=== PATIENT | female | born 1950 | race American Indian/Alaskan Native ===

== ENCOUNTER 2022-02-12 13:45 | Inpatient (IN) | payer OTHER, MEDICARE ==
--- NOTE | 2022-02-12 13:58 | Consultation ---
History of Present Illness - Reason for Consult Consult date: 02/12/22 - History of Present Illness [facility] Consult Note # Demographics Consult Type: Acute Stroke Level 1 (0-4.5 hrs) Patient Location: Emergency Room First Name: golden Last Name: anthony Date of : 1950 Age: 71 Gender: Female Facility: [facility] Time of Initial Page (): 02/12/2022, 13:43 Time of Return Call (): 02/12/2022, 13:45 # HPI History: had new onset of confusion. Family noted this to start at 1240PM. She is confused and not able to state the date or where she is. She is having problems getting words out. No focal weakness or facial droop. # Scores Time of exam and NIHSS (): 02/12/2022, 13:54 Level of Consciousness 1a: [0] = Alert; keenly responsive LOC Questions 1b: [2] = Answers neither correctly LOC Commands 1c: [0] = Performs both tasks correctly Best Gaze 2: [0] = Normal Visual 3: [0] = No visual loss Facial Palsy 4: [0] = Normal symmetrical movements Motor Arm Left 5a: [0] = No drift Motor Arm Right 5b: [0] = No drift Motor Leg Left 6a: [0] = No drift Motor Leg Right 6b: [0] = No drift Limb Ataxia 7: [0] = Absent Sensory 8: [0] = Normal Best Language 9: [0] = No aphasia Dysarthria 10: [0] = Normal Extinction and Inattention 11: [0] = No abnormality NIHSS Total: 2 # Exam Vitals: vital signs reviewed SBP: 156 DBP: 96 # PMH-FH-SH Past Medical History: hypertension Graves disease Social History: smoker Medications: No antithrombotics or anticoagulants reported # Data Time Head CT personally read by me (): 02/12/2022, 13:[address]: no bleed # Assessment Impression: Altered Mental Status possible stroke # Plan Thrombolytic/Intervention: NOT IV Thrombolysis or IA Intervention candidate Thrombolytic Exclusion (< 3 hour window): non-disabling deficit Intraarterial Exclusion: clinically not consistent with stroke Target Blood Pressure: SBP < 180 SBP > 120 Labs: Ammonia B12 ESR liver function tests TSH urine drug screen ua Imaging: (urgency: routine): MRI Brain without contrast Other: telemetry monitoring would not pursue stroke work-up if MRI is negative I have discussed my recommendations with the referring provider # Demographics First Name: golden Last Name: anthony Facility: [facility] Medications and Allergies Allergies Allergy/AdvReac Type Severity Reaction Status Date / Time Unable to Assess Allergy Verified 02/12/22 13:48
--- NOTE | 2022-02-12 14:07 | Emergency Department Report ---
ED Neuro Deficit HPI - General Chief Complaint: Neuro Symptoms/Deficit Stated Complaint: STROKE Time Seen by Provider: 02/12/22 13:53 Source: EMS Mode of arrival: Stretcher Limitations: Other - History of Present Illness Initial Comments: 71-year-old -[place] female history of hypertension approximately 2 hours ago had an episode where she became confused and having expressive aphasia there is no report of any trauma. No report of any substance abuse prior to the event. No fever chills or cough. -: Sudden Location: speech Presenting Symptoms: Present: Unable to Speak Clearly History of same: No Place: home Improves With: none Worsens With: none Context: sudden onset Associated Symptoms: confusion, weakness - Related Data Allergies/Adverse Reactions: Allergies Allergy/AdvReac Type Severity Reaction Status Date / Time Unable to Assess Allergy Verified 02/12/22 13:48 ED Review of Systems ROS: Stated complaint: STROKE Other details as noted in HPI Constitutional: denies: chills, fever Eyes: denies: eye pain, eye discharge, vision change ENT: denies: ear pain, throat pain Respiratory: denies: cough, shortness of breath, wheezing Endocrine: no symptoms reported Gastrointestinal: denies: abdominal pain, nausea, diarrhea Skin: as per HPI Neurological: weakness, confusion Psychiatric: denies: anxiety, depression Hematological/Lymphatic: denies: easy bleeding, easy bruising ED Neuro Physical Exam - General Limitations: Altered Mental Status, Other General appearance: alert, in no apparent distress Suspected Stroke: Yes - Head Head exam: Present: atraumatic, normocephalic - Eye Pupils: Present: normal accommodation - ENT ENT exam: Present: normal exam, normal orophraynx, mucous membranes dry - Neck Neck exam: Present: normal inspection - Respiratory Respiratory exam: Present: normal lung sounds bilaterally - Cardiovascular Cardiovascular Exam: Present: regular rate, normal rhythm, normal heart sounds - GI/Abdominal GI/Abdominal exam: Present: soft. Absent: distended, tenderness, guarding - Back Exam Back exam: Present: normal inspection, full ROM - Neurological Exam Neurological exam: Present: alert, oriented X3, CN II-XII intact - NIHSS Assessment Interval: 2 hours post treatment 1a. Level of Consciousness: alert/keenly responsive 1b. LOC Questions: aphasic 1c. LOC Commands: performs no tasks correctly 2. Best Gaze: normal 3. Visual: no visual loss 4. Facial Palsy: normal symmetrical movement 5b. Motor Arm Right: no drift 5a. Motor Arm Left: no drift 6a. Motor Leg Left: no drift 6b. Motor Leg Right: no drift 7. Limb Ataxia: absent 8. Sensory: normal 9. Best Language: severe aphasia 10. Dysarthria: normal 11. Extinction/Inattention: no abnormality Total Score: 6 Stroke Severity: Moderate Stroke - Psychiatric Psychiatric exam: Present: anxious - Skin Skin exam: Present: warm, intact ED Course Vital Signs 02/12/22 14:28 Pulse Rate 68 - Lab Data Result diagrams: 02/12/22 14:09 02/12/22 14:09 Lab Results 02/12/22 02/12/22 02/12/22 Range/Units 14:09 14:09 14:09 WBC 4.3 L (4.5-11.0) K/mm3 RBC 4.07 (3.65-5.03) M/mm3 Hgb 10.4 (10.1-14.3) gm/dl Hct 31.4 (30.3-42.9) % MCV 77 L (79-97) fl MCH 26 L (28-32) pg MCHC 33 (30-34) % RDW 14.2 (13.2-15.2) % Plt Count 228 (140-440) K/mm3 Lymph % (Auto) 30.8 (13.4-35.0) % [place] % (Auto) 7.4 H (0.0-7.3) % Eos % (Auto) 2.5 (0.0-4.3) % Baso % (Auto) 1.3 (0.0-1.8) % Lymph # (Auto) 1.3 (1.2-5.4) K/mm3 [place] # (Auto) 0.3 (0.0-0.8) K/mm3 Eos # (Auto) 0.1 (0.0-0.4) K/mm3 Baso # (Auto) 0.1 (0.0-0.1) K/mm3 Seg Neutrophils % 58.0 (40.0-70.0) % Seg Neutrophils # 2.5 (1.8-7.7) K/mm3 Sodium 139 (137-145) mmol/L Potassium 3.9 (3.6-5.0) mmol/L Chloride 105.7 (98-107) mmol/L Carbon Dioxide 23 (22-30) mmol/L Anion Gap 14 mmol/L BUN 10 (7-17) mg/dL Creatinine 0.8 (0.6-1.2) mg/dL Estimated GFR > 60 ml/min BUN/Creatinine Ratio 13 % Glucose 90 (65-100) mg/dL Calcium 9.3 (8.4-10.2) mg/dL Total Bilirubin 0.40 (0.1-1.2) mg/dL AST 10 (5-40) units/L ALT < 5 L (7-56) units/L Alkaline Phosphatase 80 (35-129) units/L Total Protein 6.3 (6.3-8.2) g/dL Albumin 3.6 L (3.9-5) g/dL Albumin/Globulin Ratio 1.3 % Urine Color (Yellow) Urine Turbidity (Clear) Specific [place] (Man) (1.003-1.030) Ur Protein (Man) (Negative) mg/dL Ur Ketones (Man) (Negative) Ur Nitrite (Man) (Negative) Urine Bilirubin (Man) (Negative) Leukocyte Esterase (Man) (Negative) Urine WBC (Auto) (0.0-6.0) /HPF Urine RBC (Auto) (0.0-6.0) /HPF U Epithel Cells (Auto) (0-13.0) /HPF Urine RBC (Manual) (Negative) Urine Mucus /HPF Urine Opiates Screen Urine Methadone Screen Ur Barbiturates Screen Ur Phencyclidine Scrn Ur Amphetamines Screen U Benzodiazepines Scrn Urine Cocaine Screen U Marijuana (THC) Screen Drugs of Abuse Note Plasma/Serum Alcohol < 0.01 (0-0.07) % 02/12/22 02/12/22 Range/Units Unknown Unknown WBC (4.5-11.0) K/mm3 RBC (3.65-5.03) M/mm3 Hgb (10.1-14.3) gm/dl Hct (30.3-42.9) % MCV (79-97) fl MCH (28-32) pg MCHC (30-34) % RDW (13.2-15.2) % Plt Count (140-440) K/mm3 Lymph % (Auto) (13.4-35.0) % [place] % (Auto) (0.0-7.3) % Eos % (Auto) (0.0-4.3) % Baso % (Auto) (0.0-1.8) % Lymph # (Auto) (1.2-5.4) K/mm3 [place] # (Auto) (0.0-0.8) K/mm3 Eos # (Auto) (0.0-0.4) K/mm3 Baso # (Auto) (0.0-0.1) K/mm3 Seg Neutrophils % (40.0-70.0) % Seg Neutrophils # (1.8-7.7) K/mm3 Sodium (137-145) mmol/L Potassium (3.6-5.0) mmol/L Chloride (98-107) mmol/L Carbon Dioxide (22-30) mmol/L Anion Gap mmol/L BUN (7-17) mg/dL Creatinine (0.6-1.2) mg/dL Estimated GFR ml/min BUN/Creatinine Ratio % Glucose (65-100) mg/dL Calcium (8.4-10.2) mg/dL Total Bilirubin (0.1-1.2) mg/dL AST (5-40) units/L ALT (7-56) units/L Alkaline Phosphatase (35-129) units/L Total Protein (6.3-8.2) g/dL Albumin (3.9-5) g/dL Albumin/Globulin Ratio % Urine Color Yellow (Yellow) Urine Turbidity Clear (Clear) Specific [place]ryker (Man) 1.010 (1.003-1.030) Ur Protein (Man) Negative (Negative) mg/dL Ur Ketones (Man) 2+ (Negative) Ur Nitrite (Man) Negative (Negative) Urine Bilirubin (Man) Negative (Negative) Leukocyte Esterase (Man) Negative (Negative) Urine WBC (Auto) 2.0 (0.0-6.0) /HPF Urine RBC (Auto) 6.0 (0.0-6.0) /HPF U Epithel Cells (Auto) 5.0 (0-13.0) /HPF Urine RBC (Manual) Negative (Negative) Urine Mucus Few /HPF Urine Opiates Screen Presumptive negative Urine Methadone Screen Presumptive negative Ur Barbiturates Screen Presumptive negative Ur Phencyclidine Scrn Presumptive negative Ur Amphetamines Screen Presumptive negative U Benzodiazepines Scrn Presumptive negative Urine Cocaine Screen Presumptive negative U Marijuana (THC) Screen Presumptive negative Drugs of Abuse Note Disclamer Plasma/Serum Alcohol (0-0.07) % Critical care attestation.: If time is entered above; I have spent that time in minutes in the direct care of this critically ill patient, excluding procedure time. ED Disposition Clinical Impression: TIA (transient ischemic attack) Disposition: ADMITTED INPATIENT Is pt being admited?: Yes Condition: Serious
[2022-02-12 14:17] LABS: Basophils # (Auto) 0.1 K/mm3 (0.0-0.1); Basophils % (Auto) 1.3 % (0.0-1.8); Eosinophils # (Auto) 0.1 K/mm3 (0.0-0.4); Eosinophils % (Auto) 2.5 % (0.0-4.3); Hematocrit 31.4 % (30.3-42.9); Hemoglobin 10.4 gm/dl (10.1-14.3); Lymphocytes # (Auto) 1.3 K/mm3 (1.2-5.4); Lymphocytes % (Auto) 30.8 % (13.4-35.0); Mean Corpuscular HGB Conc 33 % (30-34); Mean Corpuscular Volume 77 fl (79-97); Monocytes # (Auto) 0.3 K/mm3 (0.0-0.8); Monocytes % (Auto) 7.4 % (0.0-7.3); Platelet Count 228 K/mm3 (140-440); Red Blood Count 4.07 M/mm3 (3.65-5.03); Red Cell Distribution Width 14.2 % (13.2-15.2)
[2022-02-12 14:34] LABS: Albumin 3.6 g/dL (3.9-5); BUN/Creatinine Ratio 13; Blood Urea Nitrogen 10 mg/dL (7-17); Calcium 9.3 mg/dL (8.4-10.2); Hemolysis Index 7
--- NOTE | 2022-02-12 14:39 | Cat Scan Report ---
CT head/brain wo con INDICATION: everett. TECHNIQUE: CT head. All CT scans at this location are performed using CT dose reduction for ALARA by means of automated exposure control. COMPARISON: None. FINDINGS: Intracranial: Watts-white matter differentiation is maintained. No intracranial hemorrhage. No extra a xial collection. No hydrocephalus. No herniation. Confluent periventricular and centrum semiovale whi te matter hypoattenuation most consistent with sequela of chronic microvascular disease. Smaller area of encephalomalacia seen in the posterior right parietal lobe from remote infarction. Remote lacunar infarctions seen within the left basal ganglia and within the right greater than left cerebellar hem ispheres. Sinuses: Paranasal sinuses and mastoid air cells are essentially clear. Orbits: Globes are intact. Calvarium: No acute fracture. IMPRESSION: 1. No acute findings. 2. Severe sequela of chronic microvessel disease. Multifocal remote infarctions. Signer Name: Yosef Alva MD Signed: 02/12/2022 2:34 PM Workstation Name: [id number]
--- NOTE | 2022-02-12 14:40 | XRay Report ---
CHEST 1 VIEW 02/12/2022 1:32 PM INDICATION / CLINICAL INFORMATION: sob. COMPARISON: None. FINDINGS: SUPPORT DEVICES: None. HEART / MEDIASTINUM: Heart size is normal. Thoracic aorta appears tortuous. LUNGS / PLEURA: Within the medial right lung apex, there is a 3 cm rounded density. Lungs are otherwi se clear. No pneumothorax. ADDITIONAL FINDINGS: No significant additional findings. IMPRESSION: 1. 3 cm rounded density projecting at the medial right lung apex is concerning for neoplasm. CT is re commended to better characterize this. Signer Name: Elvis Virgen MD Signed: 02/12/2022 2:36 PM Workstation Name: [id number]
[2022-02-12 14:51] LABS: Alanine Aminotransferase < 5 units/L (7-56)
[2022-02-12 16:16] LABS: Amphetamine Screen,Urine PRESUMPTIVE NEGATIVE; Benzodiazepines Screen,Urine PRESUMPTIVE NEGATIVE; Cannabinoid Screen,Urine PRESUMPTIVE NEGATIVE; Cocaine Screen,Urine PRESUMPTIVE NEGATIVE; Methadone Screen,Urine PRESUMPTIVE NEGATIVE; Opiate Screen,Urine PRESUMPTIVE NEGATIVE
[2022-02-12 16:17] LABS: Color,Urine Yellow (Yellow)
[2022-02-12 16:27] LABS: Mucus,Urine FEW /HPF
[2022-02-12] MEDS ORDERED: METOCLOPRAMIDE 10 MG TAB PO PRN (18:18)
[2022-02-12] MEDS ORDERED: PROMETHAZINE 25 MG RECT SUPP PR PRN (18:18)
[2022-02-12] MEDS ORDERED: ONDANSETRON 4 MG/2 ML INJ IV PRN (18:18)
[2022-02-12] MEDS ORDERED: ACETAMINOPHEN 325 MG TAB PO PRN (18:18)
[2022-02-12] MEDS ORDERED: oxyCODONE /ACETAMINOPHEN 5-325MG TAB PO PRN (18:18)
[2022-02-12] MEDS ORDERED: HYDROmorphone 0.5 MG/0.5 ML INJ IV PRN (18:18)
[2022-02-12] MEDS ORDERED: ALBUTEROL 2.5 MG/3 ML NEBU IH PRN (18:18)
[2022-02-12] MEDS ORDERED: MAGNESIUM HYDROXIDE (MOM) ORAL LIQD UDC PO PRN (18:18)
--- NOTE | 2022-02-12 18:23 | History and Physical Report ---
History of Present Illness Chief complaint: She got confused and her speech was slurred History of present illness: 71 YO Female with Vascular Dementia, Cerebral Atherosclerosis, HTN presents to ED for evaluation. Patient is confused with diminished cognition and unable to provide detailed history. Patient is brought by EMS staff, ED staff, as well as patient family was made available by telephone for interview. Patient family report that at approximately 1240 hours the patient experienced a sudden onset of confusion and slurred speech without resolution of symptoms. EMS was notified and upon arrival the patient was found to be in distress with a new focal neurologic deficit. A code stroke was called and the patient was transported to [facility] for further care and evaluation of the aforementioned symptoms. The patient was seen and evaluated in the emergency department. All lab and imaging studies reviewed. Patient found to have symptoms consistent with CVA. Patient admitted to medical floor and initiated on CVA protocol. No reports of fever, chills, chest pain, palpitation, trauma, productive cough, skin rash, recent contact, known exposure to COVID-19. No prior admission for review. No medication listed at time of admission for reconciliation. Advanced care planning conducted in ED. Past History Past Medical History: hypertension, other (See HPI) Past Surgical History: No surgical history, Other (Reviewed) Social history: single. denies: smoking, alcohol abuse, prescription drug abuse Family history: hypertension Medications and Allergies Allergies Allergy/AdvReac Type Severity Reaction Status Date / Time Unable to Assess Allergy Verified 02/12/22 13:48 Review of Systems ROS unobtainable: due to mental status Exam - Constitutional Vitals: Temp Pulse Resp BP Pulse Ox 68 02/12/22 14:28 General appearance: Present: mild distress - EENT Eyes: Present: PERRL ENT: hearing intact, clear oral mucosa - Neck Neck: Present: supple, normal ROM - Respiratory Respiratory effort: normal Respiratory: bilateral: CTA - Cardiovascular Heart Sounds: Present: S1 & S2. Absent: rub, click - Extremities Extremities: pulses symmetrical, No edema Peripheral Pulses: within normal limits - Abdominal General gastrointestinal: Present: soft, non-tender, non-distended, normal bowel sounds Female genitourinary: Present: normal - Integumentary Integumentary: Present: clear, warm, dry - Musculoskeletal Musculoskeletal: generalized weakness - Psychiatric Psychiatric: no appropriate mood/affect, no intact judgment & insight, no memory intact - Neurologic Neurologic: CNII-XII intact, moves all extremities, no gait normal Results - Labs CBC & Chem 7: 02/12/22 14:09 02/12/22 14:09 Labs: Abnormal lab results 02/12/22 02/12/22 Range/Units 14:09 14:09 WBC 4.3 L (4.5-11.0) K/mm3 MCV 77 L (79-97) fl MCH 26 L (28-32) pg [place] % (Auto) 7.4 H (0.0-7.3) % ALT < 5 L (7-56) units/L Albumin 3.6 L (3.9-5) g/dL Assessment and Plan - Patient Problems (1) CVA (cerebral vascular accident) Current Visit: Yes Status: Acute Qualifiers: Laterality of affected vessel: unspecified Plan to address problem: CVA protocol: CT head, neuro check, seizure cautions, physical therapy consulted, Occupational Therapy consulted, speech therapy consulted, teleneurology consulted, carotid Doppler, echocardiogram, lipid panel, antiplatelet therapy, statin therapy, (2) Vascular dementia Current Visit: Yes Status: Acute Qualifiers: Dementia behavioral disturbance: without behavioral disturbance Qualified Code(s): F01.50 - Vascular dementia without behavioral disturbance Plan to address problem: Verbal prompting, verbal redirection, benzodiazepine therapy as clinically indicated. (3) Cerebral atherosclerosis Current Visit: Yes Status: Acute Plan to address problem: Risk factor reduction, antiplatelet therapy as clinically indicated. (4) Hypertension Current Visit: Yes Status: Acute Qualifiers: Hypertension type: primary hypertension Qualified Code(s): I10 - Essential (primary) hypertension Plan to address problem: Monitor blood pressure every shift, continue medical management. (5) DVT prophylaxis Current Visit: Yes Status: Acute Plan to address problem: SCDs to bilateral lower extremities while in bed (6) Advance care planning Current Visit: Yes Status: Acute Plan to address problem: Disease education done, care plan discussed, diagnosis discussed, prognosis discussed, patient is full code. +30 minutes. (7) Preventative health care Current Visit: Yes Status: Acute Plan to address problem: Patient family counseled regarding home safety precautions, outpatient follow-up with primary care physician for all age and risk factor appropriate screening test. +30 minutes.
[2022-02-13] MEDS ORDERED: ASPIRIN 325 MG TAB PO SCH (10:00)
--- NOTE | 2022-02-13 11:47 | Electrocardiograph Report ---
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
--- NOTE | 2022-02-13 11:47 | Electrocardiograph Report ---
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
--- NOTE | 2022-02-13 13:29 | Vascular Lab Report ---
DUPLEX DOPPLER ULTRASOUND CAROTID, BILATERAL INDICATION / CLINICAL INFORMATION: stroke. COMPARISON: None available. FINDINGS: RIGHT CAROTID: Mild atherosclerotic plaque. Tortuous ICA. - PLAQUE ESTIMATE (%): < 50% - CCA velocity: 48 cm/sec. - ICA peak systolic velocity: 62 cm/sec. - ICA/CCA PSV Ratio: Less than 2. Right Vertebral Artery: Antegrade flow. LEFT CAROTID: Mild atherosclerotic plaque. Tortuous ICA. - PLAQUE ESTIMATE (%): < 50% - CCA velocity: 43 cm/sec. - ICA peak systolic velocity: 87 cm/sec. - ICA/CCA PSV Ratio: 2.0 Left Vertebral Artery: Antegrade flow. IMPRESSION: 1. Right Internal Carotid Artery: Less than 50% diameter stenosis. 2. Left Internal Carotid Artery: Less than 50% diameter stenosis. Velocity criteria are extrapolated from diameter data as defined by the Society of Radiologists in [place] [facility] [place] Consensus Conference, Radiology 2003; 229;340-346. NO STENOSIS (NORMAL) - Plaque = none; ICA PSV < 125 cm/sec; ICA/CCA PSV Ratio < 2.0 <50% STENOSIS - Plaque < 50%; ICA PSV < 125 cm/sec; ICA/CCA PSV Ratio < 2.0 50-69% STENOSIS - Plaque > 50%; ICA PSV = 125-230 cm/sec; ICA/CCA PSV Ratio = 2.0-4.0 >70% BUT <100% STENOSIS - Plaque > 50%; ICA PSV > 230 cm/sec; ICA/CCA PSV Ratio > 4.0 NEAR OCCLUSION - Plaque = visible lumen; ICA PSV = high/low/none; ICA/CCA PSV Ratio = variable TOTAL OCCLUSION - Plaque = no lumen; ICA PSV = none; ICA/CCA PSV Ratio = N/A Scribed by: Violet Schneider RDMS, RVT, RMSKS Scribed: 02/13/2022 11:09 AM I have reviewed the images, agree with this report, and edited this report as needed. Signer Name: Hever Briones MD Signed: 02/13/2022 1:25 PM Workstation Name: [id number]
--- NOTE | 2022-02-13 14:08 | Magnetic Resonance Report ---
MRI BRAIN WITHOUT CONTRAST INDICATION / CLINICAL INFORMATION: Acute CVA. TECHNIQUE: Multiplanar, multisequence MR images of the brain were obtained. COMPARISON: Head CT 02/12/2022 FINDINGS: Limitation: Patient motion artifact degrades image quality. This is most problematic on the axial FLA IR sequence. BRAIN / INTRACRANIAL CONTENTS: Ventricles and cortical sulci are within normal limits for size given the patient's stated age of 71 years. Extensive periventricular, subcortical and deep white matter hy perintensities are noted consistent with severe microvascular ischemic changes. There is no mass effe ct. No evidence of recent intracranial hemorrhage or extra-axial fluid collection is seen. Multifocal remote small deep infarctions are noted. There is evidence of a remote hemorrhagic infarction in the right subinsular region. A remote hemorrhagic infarction is observed in the left gangliocapsular reg ion involving head of caudate nucleus. Smaller foci of remote nonhemorrhagic small deep infarctions a re observed elsewhere. There is no indication of remote cortical infarction. Diffusion weighted scans are negative. There is no indication of acute ischemic injury. There is evidence of remote small deep pontine infarction. The brainstem has an otherwise unremarkabl e appearance. Findings indicate the presence of remote right cerebellar infarction involving anterior inferior cerebellar artery distribution. Abnormal signal intensity in the aqueduct of Sylvius and fourth ventricle on FLAIR imaging appears to be artifactual. No abnormalities are seen in this distribution on other pulse sequences. CRANIOCERVICAL JUNCTION: No abnormalities are identified at the craniocervical junction. VASCULAR FLOW-VOIDS: Dolichoectasia of the vertebrobasilar system is noted. ORBITS: The orbits have an unremarkable appearance. SINUSES / MASTOIDS: There is no indication of inflammatory disease in the paranasal sinuses or mastoi d air cells. IMPRESSION: 1. Advanced microvascular ischemic change. 2. Remote hemorrhagic small deep infarctions right subinsular region and left gangliocapsular region. 3. No acute intercranial abnormalities are identified. Signer Name: Vinny Garner MD Signed: 02/13/2022 2:04 PM Workstation Name: [email or web address]
--- NOTE | 2022-02-13 20:27 | Progress Note ---
Assessment and Plan Assessment and plan: 1) CVA (cerebral vascular accident) Current Visit: Yes Status: Acute Qualifiers: Laterality of affected vessel: unspecified Plan to address problem: CVA protocol: CT head, neuro check, seizure cautions, physical therapy consulted, Occupational Therapy consulted, speech therapy consulted, tele neurology consulted, carotid Doppler, echocardiogram, lipid panel, antiplatelet therapy, statin therapy, (2) Vascular dementia Current Visit: Yes Status: Acute Qualifiers: Dementia behavioral disturbance: without behavioral disturbance Qualified Code(s): F01.50 - Vascular dementia without behavioral disturbance Plan to address problem: Verbal prompting, verbal redirection, benzodiazepine therapy as clinically indicated. (3) Cerebral atherosclerosis Current Visit: Yes Status: Acute Plan to address problem: Risk factor reduction, antiplatelet therapy as clinically indicated. (4) Hypertension Current Visit: Yes Status: Acute Qualifiers: Hypertension type: primary hypertension Qualified Code(s): I10 - Essential (primary) hypertension Plan to address problem: Monitor blood pressure every shift, continue medical management. (5) DVT prophylaxis Current Visit: Yes Status: Acute Plan to address problem: SCDs to bilateral lower extremities while in bed (6) Advance care planning Current Visit: Yes Status: Acute Plan to address problem: Disease education done, care plan discussed, diagnosis discussed, prognosis discussed, patient is full code. +30 minutes. (7) Preventative health care Current Visit: Yes Status: Acute Plan to address problem: Patient family counseled regarding home safety precautions, outpatient follow-up with primary care physician for all age and risk factor appropriate screening te st. +30 minutes. Closely monitor the patient and adjust management as needed Follow neuro work-up Follow-up PT OT evaluation recommendations DC planning per case management Plan of care reviewed with the patient and her nurse History Interval history: Seen and examined the patient at the bedside Patient's chart and medications reviewed Patient feels slightly better Reports that her speech is significantly improved Denies any weakness Neuro work-up in progress Hospitalist Physical - Constitutional Vitals: Temp Pulse Resp BP Pulse Ox 98.7 F 73 16 146/95 100 02/13/22 17:44 02/13/22 17:44 02/13/22 04:22 02/13/22 17:44 02/13/22 17:44 General appearance: Present: no acute distress, well-nourished - EENT Eyes: Present: PERRL, EOM intact - Neck Neck: Present: supple, normal ROM - Respiratory Respiratory effort: normal Respiratory: bilateral: diminished, negative: rales, rhonchi, wheezing - Cardiovascular Rhythm: regular Heart Sounds: Present: S1 & S2 - Extremities Extremities: no ischemia, No edema - Abdominal General gastrointestinal: soft, non-tender, non-distended, normal bowel sounds - Integumentary Integumentary: Present: clear, warm - Psychiatric Psychiatric: appropriate mood/affect, cooperative - Neurologic Neurologic: moves all extremities Results - Labs CBC & Chem 7: 02/12/22 14:09 02/12/22 14:09 Labs: Laboratory Last Values WBC 4.3 K/mm3 (4.5-11.0) L 02/12/22 14:09 RBC 4.07 M/mm3 (3.65-5.03) 02/12/22 14:09 Hgb 10.4 gm/dl (10.1-14.3) 02/12/22 14:09 Hct 31.4 % (30.3-42.9) 02/12/22 14:09 MCV 77 fl (79-97) L 02/12/22 14:09 MCH 26 pg (28-32) L 02/12/22 14:09 MCHC 33 % (30-34) 02/12/22 14:09 RDW 14.2 % (13.2-15.2) 02/12/22 14:09 Plt Count 228 K/mm3 (140-440) 02/12/22 14:09 Lymph % (Auto) 30.8 % (13.4-35.0) 02/12/22 14:09 [place] % (Auto) 7.4 % (0.0-7.3) H 02/12/22 14:09 Eos % (Auto) 2.5 % (0.0-4.3) 02/12/22 14:09 Baso % (Auto) 1.3 % (0.0-1.8) 02/12/22 14:09 Lymph # (Auto) 1.3 K/mm3 (1.2-5.4) 02/12/22 14:09 [place] # (Auto) 0.3 K/mm3 (0.0-0.8) 02/12/22 14:09 Eos # (Auto) 0.1 K/mm3 (0.0-0.4) 02/12/22 14:09 Baso # (Auto) 0.1 K/mm3 (0.0-0.1) 02/12/22 14:09 Seg Neutrophils % 58.0 % (40.0-70.0) 02/12/22 14:09 Seg Neutrophils # 2.5 K/mm3 (1.8-7.7) 02/12/22 14:09 Sodium 139 mmol/L (137-145) 02/12/22 14:09 Potassium 3.9 mmol/L (3.6-5.0) 02/12/22 14:09 Chloride 105.7 mmol/L (98-107) 02/12/22 14:09 Carbon Dioxide 23 mmol/L (22-30) 02/12/22 14:09 Anion Gap 14 mmol/L 02/12/22 14:09 BUN 10 mg/dL (7-17) 02/12/22 14:09 Creatinine 0.8 mg/dL (0.6-1.2) 02/12/22 14:09 Estimated GFR > 60 ml/min 02/12/22 14:09 BUN/Creatinine Ratio 13 % 02/12/22 14:09 Glucose 90 mg/dL (65-100) 02/12/22 14:09 Calcium 9.3 mg/dL (8.4-10.2) 02/12/22 14:09 Total Bilirubin 0.40 mg/dL (0.1-1.2) 02/12/22 14:09 AST 10 units/L (5-40) 02/12/22 14:09 ALT < 5 units/L (7-56) L 02/12/22 14:09 Alkaline Phosphatase 80 units/L (35-129) 02/12/22 14:09 Total Protein 6.3 g/dL (6.3-8.2) 02/12/22 14:09 Albumin 3.6 g/dL (3.9-5) L 02/12/22 14:09 Albumin/Globulin Ratio 1.3 % 02/12/22 14:09 Urine Color Yellow (Yellow) 02/12/22 Unknown Urine Turbidity Clear (Clear) 02/12/22 Unknown Specific [place] (Man) 1.010 (1.003-1.030) 02/12/22 Unknown Ur Protein (Man) Negative mg/dL (Negative) 02/12/22 Unknown Ur Ketones (Man) 2+ (Negative) 02/12/22 Unknown Ur Nitrite (Man) Negative (Negative) 02/12/22 Unknown Urine Bilirubin (Man) Negative (Negative) 02/12/22 Unknown Leukocyte Esterase (Man) Negative (Negative) 02/12/22 Unknown Urine WBC (Auto) 2.0 /HPF (0.0-6.0) 02/12/22 Unknown Urine RBC (Auto) 6.0 /HPF (0.0-6.0) 02/12/22 Unknown U Epithel Cells (Auto) 5.0 /HPF (0-13.0) 02/12/22 Unknown Urine RBC (Manual) Negative (Negative) 02/12/22 Unknown Urine Mucus Few /HPF 02/12/22 Unknown Urine Opiates Screen Presumptive negative 02/12/22 Unknown Urine Methadone Screen Presumptive negative 02/12/22 Unknown Ur Barbiturates Screen Presumptive negative 02/12/22 Unknown Ur Phencyclidine Scrn Presumptive negative 02/12/22 Unknown Ur Amphetamines Screen Presumptive negative 02/12/22 Unknown U Benzodiazepines Scrn Presumptive negative 02/12/22 Unknown Urine Cocaine Screen Presumptive negative 02/12/22 Unknown U Marijuana (THC) Screen Presumptive negative 02/12/22 Unknown Drugs of Abuse Note Disclamer 02/12/22 Unknown Plasma/Serum Alcohol < 0.01 % (0-0.07) 02/12/22 14:09 [place]/IV: Voiding Method Bedside Commode Active Medications - Current Medications Current Medications: Generic Name Dose Route Start Last Admin Trade Name Freq PRN Reason Stop Dose Admin Acetaminophen 650 mg 02/12/22 18:18 Acetaminophen 325 Mg Tab PO Q4H PRN Pain, Mild (1-3) Albuterol 2.5 mg 02/12/22 18:18 Albuterol 2.5 Mg/3 Ml Nebu IH Q3HRT PRN Shortness Of Breath Aspirin 325 mg 02/13/22 10:00 Aspirin 325 Mg Tab PO QDAY JERRI Atorvastatin Calcium 40 mg 02/12/22 22:00 02/13/22 02:06 Atorvastatin 40 Mg Tab PO Not Given QHS JERRI Bisacodyl 10 mg 02/12/22 18:18 Bisacodyl 10 Mg Rect Supp FL QDAY PRN Constipation Hydromorphone HCl 0.5 mg 02/12/22 18:18 Hydromorphone 0.5 Mg/0.5 Ml Inj IV Q23H PRN Pain , Severe (7-10) Magnesium Hydroxide 30 ml 02/12/22 18:18 Magnesium Hydroxide (Mom) Oral Liqd Udc PO Q4H PRN Constipation Metoclopramide HCl 10 mg 02/12/22 18:18 Metoclopramide 10 Mg Tab PO Q6H PRN Nausea And Vomiting Ondansetron HCl 4 mg 02/12/22 18:18 Ondansetron 4 Mg/2 Ml Inj IV Q8H PRN Nausea And Vomiting Oxycodone/Acetaminophen 1 tab 02/12/22 18:18 Oxycodone /Acetaminophen 5-325mg Tab PO Q16H PRN Pain, Moderate (4-6) Promethazine HCl 25 mg 02/12/22 18:18 Promethazine 25 Mg Rect Supp FL Q6H PRN Nausea And Vomiting Sodium Chloride 10 ml 02/12/22 18:18 Sodium Chloride 0.9% 10 Ml Flush Syringe IV PRN PRN LINE FLUSH
[2022-02-13] MEDS ORDERED: hydrALAZINE 20 MG/1 ML INJ IV PRN (23:28)
--- NOTE | 2022-02-14 13:08 | Discharge Summary ---
Providers - Providers Date of Admission: 02/12/22 18:18 Date of discharge: 02/14/22 Attending physician: DEEPTI BHAT 02/12/22 18:18 Occupational Therapy Evaluate and Treat [CONS] Routine Comment: Reason For Exam: Neuro deficits Physical Therapy Evaluation and Treat [CONS] Routine Comment: Reason For Exam: Neuro deficits 02/12/22 18:21 Speech Therapy Evaluation and Treat [CONS] Routine Reason For Exam: swallow eval Primary care physician: TECHNICAL SALES DIRECTOR Hospitalization Condition: Serious Hospital course: 1) CVA (cerebral vascular accident)/acute CVA ruled out CVA work-up is negative PT recommended home health PT and rolling walker Transient ischemic attack (2) Vascular dementia Verbal prompting, verbal redirection, benzodiazepine therapy as clinically indicated. (3) Cerebral atherosclerosis Fair (4) Hypertension Monitor blood pressure every shift, continue medical management. (5) DVT prophylaxis SCDs to bilateral lower extremities while in bed (6) Advance care planning Disease education done, care plan discussed, diagnosis discussed, prognosis discussed, patient is full code. +30 minutes. (7) Preventative health care Patient family counseled regarding home safety precautions, outpatient follow-up with primary care physician for all age and risk factor appropriate screening test. +30 minutes. Disposition: 06 HOME HEALTH CARE SERVICE Final Discharge Diagnosis (Prints w/discharge instructions): Possible CVA/acute CVA ruled out. vascular dementia. Transient ischemic attack. Hypertension well-controlled. cerebral atherosclerosis Core Measure Documentation - Palliative Care Palliative Care/ Comfort Measures: Not Applicable - Core Measures Any of the following diagnoses?: none Exam - Constitutional Vitals: Temp Pulse Resp BP Pulse Ox 97.7 F 67 16 167/95 97 02/14/22 08:19 02/14/22 08:19 02/14/22 04:04 02/14/22 08:19 02/14/22 10:00 General appearance: Present: no acute distress, well-nourished - EENT Eyes: Present: PERRL, EOM intact - Neck Neck: Present: supple, normal ROM - Respiratory Respiratory effort: normal Respiratory: bilateral: diminished, negative: rales, rhonchi, wheezing - Cardiovascular Rhythm: regular Heart Sounds: Present: S1 & S2 - Extremities Extremities: no ischemia, No edema - Abdominal General gastrointestinal: Present: soft, non-tender, non-distended, normal bowel sounds - Integumentary Integumentary: Present: clear, warm - Musculoskeletal Musculoskeletal: strength equal bilaterally - Psychiatric Psychiatric: appropriate mood/affect, cooperative - Neurologic Neurologic: moves all extremities Plan Activity: advance as tolerated Diet: other (Cardiac diet) Special Instructions: physical therapy (Home health PT) Additional Instructions: If you have worsening symptoms contact MD or go to the nearest emergency room as needed. If you get symptoms of confusion and slurring of speech again. Go to the nearest emergency room, and you need private neuro logist evaluation Follow up with: PRIMARY CARE, [Primary Care Provider] - 7 Days Prescriptions: Aspirin EC [Halfprin EC] 81 mg PO QDAY #30 tablet.
[2022-02-14 15:43] LABS: Chol/HDL Ratio 2.47 %
[2022-02-14 16:14] VITALS: BP 131/83
== END 2022-02-14 19:50 | disposition home health service (06) | DRG 69 ==
LOC: ED 13:45 → 3A 18:18 → 4A 22:16
PROVIDERS: ADMIT Internal Medicine; ATTEND Internal Medicine
DX: G45.9 Transient cerebral ischemic attack, unspecified (principal); I67.2 Cerebral atherosclerosis; F01.50 Vascular dementia, unspecified severity, without behavioral disturbance, psychotic disturbance, mood disturbance, and anxiety; I10 Essential (primary) hypertension; Z82.49 Family history of ischemic heart disease and other diseases of the circulatory system
CPT/HCPCS: 36415; 70450; 70551; 71045; 80053; 80061; 80307; 80320; 81001; 85025; 93005; 93306; 93880; 99285; G0378; C8929; G0480; J0360